=== PATIENT | male | born 1980 | race African-American/Black ===

== ENCOUNTER 2017-06-18 10:27 | Emergency (ER) | payer OTHER ==
[~2017-06-18] VITALS: Ht 180.3 cm; Wt 82.0 kg
[~2017-06-18 10:27] MED LIST: MOBI7.5T PO
[2017-06-18 10:31] VITALS: BP 108/75; PULSE 88; RESP 16; TEMP 98.3; O2SAT 100
--- NOTE | 2017-06-18 11:07 | PD ---
HPI Chief Complaint: Oral / Dental Pain or Problem Time Seen by Provider: 10:34 Travel History International Travel<30 days: No Contact w/Intl Traveler<30days: No Traveled to known affect area: No History of Present Illness HPI 36-year-old male presents to the emergency department with complaint of right upper dental pain and facial swelling 2 days. Denies fever, vomiting. Denies sore throat, difficulty swallowing, unusual drooling. rates pain 10/10. Has been smoking marijuana for symptom management. Pain is aggravated with eating, drinking, etc. Reports cavities. No primary care provider. Denies significant past medical history. No known allergies. Has no other medical complaints. No other modifying factors or associated signs and symptoms. PFSH Past Medical History Diminished Hearing: No Social History Alcohol Use: No Tobacco Use: No Substance Use: Yes (MARIJUANA) Allergies-Medications (Allergen,Severity, Reaction): Coded Allergies: No Known Allergies (Verified Adverse Reaction, Unknown, 06/18/17) Reported Meds & Prescriptions Reported Meds & Active Scripts Active Magic Mouthwash Pediatric/Adult Liq (Lidocaine/Diphenhydr/Alum/Mg/Simeth) 60 Ml Susp 5 Ml SWISH-SWAL Q3HR PRN Each 5mL contains: Diphenydramine 4.5mg, Viscous Lidocaine 2% 10mg, Maalox Advanced Regular Strength 2.7ml Amoxicillin 500 Mg Cap 500 Mg PO BID 10 Days Peridex Liq (Chlorhexidine Gluconate (Mouth) Liq) 0.12% Soln 15 Ml SWISH-SPIT BID 10 Days Mobic (Meloxicam) 7.5 Mg Tab 7.5 Mg PO DAILY Review of Systems Except as stated in HPI: all other systems reviewed are Neg Physical Exam Narrative GENERAL: Well-nourished, well-developed black male patient, in no acute distress ; afebrile, nontoxic-appearing SKIN: Warm and dry. HEAD: Atraumatic. Normocephalic. No facial edema, erythema, tenderness on palpation. No lymphadenopathy. EYES: Pupils equal and round. No scleral icterus. No injection or drainage. ENT: Mucosa pink and moist. No erythema or exudates. No uvular edema. No uvular , palatal, or tonsillar deviation. Airway patent. EARS: Bilateral pinnae and external canals appear within normal limits. Bilateral tympanic membranes without erythema, dullness or perforation. MOUTH: Mucous membranes moist, no lesions, tongue and gums appear normal. Multiple dental cavities noted and poor dentition throughout. Tooth #2 with tenderness on palpation; large dental cavity noted. Surrounding gingiva is without erythema, edema, drainage. No obvious abscess noted. NECK: Trachea midline. No lymphadenopathy. CARDIOVASCULAR: Regular rate. RESPIRATORY: No accessory muscle use. GASTROINTESTINAL: Flat. MUSCULOSKELETAL: No obvious deformities. No clubbing. No cyanosis. No edema. NEUROLOGICAL: Awake and alert. Oriented 3. No obvious cranial nerve deficits. Motor grossly within normal limits. Normal speech. PSYCHIATRIC: Appropriate mood and affect; insight and judgment normal. Data Data Last Documented VS Vital Signs Date Time Temp Pulse Resp B/P (MAP) Pulse Ox O2 Delivery O2 Flow Rate FiO2 06/18/17 10:31 98.3 88 16 108/75 (86) 100 Orders Orders Amoxicillin (Trimox) (06/18/17 11:15) Ed Discharge Order (06/18/17 11:07) MDM Medical Decision Making Medical Screen Exam Complete: Yes Emergency Medical Condition: Yes Medical Record Reviewed: Yes Differential Diagnosis Dentalgia, infected dental caries, dental abscess, gingivitis Narrative Course 36-year-old male with dentalgia and dental cavities. No facial edema noted on physical exam. No lymphadenopathy. Patient is afebrile and nontoxic- appearing. He denies fever, vomiting. After the patient pain medication and he declined. Amoxicillin administered in the ER. Amoxicillin, Magic mouthwash , Peridex mouth rinse prescribed for home. Instructed patient to follow-up with dentist. Emergency dental information sheet provided for follow-up. Instructed patient to follow up with primary care provider. Patient verbalizes understanding and agreement with treatment plan. Patient is medically cleared and stable for discharge. Discussed reasons to return to the emergency department. Patient agrees with treatment plan. The patients vital signs are stable and the patient is stable for outpatient follow-up and treatment. Patient discharged home, stable and in no acute distress. Diagnosis Primary Impression: Tooth pain Additional Impression: Dental cavities Referrals: Dentist Primary Care Physician Patient Instructions: Dental Abscess (ED), Dental Caries (ED), General Instructions, Toothache (ED) Departure Forms: Tests/Procedures, Work Release Enter return to work date: Jun 19, 2017 Additional Instructions: Complete full course of antibiotics Ibuprofen or Tylenol as directed and as needed to reduce pain and inflammation Use Magic mouthwash rinse as directed and as needed to decrease pain Use Peridex as directed for oral hygiene Warm or cool compresses to the affected area Follow-up with dentist Follow-up with primary care provider Return to emergency department immediately with worsening of symptoms Med/Other Pt SpecificInfo: Prescription(s) given Scripts Zdactpbrvpsgndr-Bqwjhssqz-Chx-Alum-Simeth Liq (Magic Mouthwash Pediatric/Adult Liq) 60 Ml Susp 5 ML SWISH-SWAL Q3HR Y for PAIN SCALE 1 TO 10, #60 ML 0 Refills Each 5mL contains: Diphenydramine 4.5mg, Viscous Lidocaine 2% 10mg, Maalox Advanced Regular Strength 2.7ml Prov: Sharla Butts 06/18/17 Amoxicillin (Amoxicillin) 500 Mg Cap 500 MG PO BID for Infection for 10 Days, #20 CAP 0 Refills Prov: Sharla Butts 06/18/17 Chlorhexidine Gluconate (Mouth) Liq (Peridex Liq) 0.12% Soln 15 ML SWISH-SPIT BID for 10 Days, #300 ML 0 Refills Prov: Sharla Butts 06/18/17 Disposition: 01 DISCHARGE HOME Condition: Stable Sharla Butts Jun 18, 2017 11:07
[2017-06-18] MEDS ORDERED: PERI0.126 SWISH-SPIT (11:10)
[2017-06-18] MEDS ORDERED: MAGICPED SWISH-SWAL (11:10)
[2017-06-18] MEDS ORDERED: AMOX500C PO (11:10)
[2017-06-18] MEDS ORDERED: AMOXICILLIN (TRIHYDRATE) 500 MG CAP PO ONE (11:15)
== END 2017-06-18 11:30 | disposition home or self-care (01) ==
LOC: NEPD 10:27
DX: K08.89 Other specified disorders of teeth and supporting structures (principal); K02.9 Dental caries, unspecified; F12.90 Cannabis use, unspecified, uncomplicated
CPT/HCPCS: 99283